=== PATIENT | male | born 1990 | race Caucasian/White ===

== ENCOUNTER 2016-08-30 18:33 | Emergency (ER) ==
[2016-08-30 18:45] VITALS: BP 112/63; TEMP 98.7; BMI 19.1
[2016-08-30] MEDS ORDERED: ROCEPHIN IM STA (18:56)
[2016-08-30] MEDS ORDERED: LIDOCAINE 1 % AMP 5 ML (SUTURES) IM STA (18:56)
--- NOTE | 2016-08-30 18:59 | ED.PDOC ---
General ED Provider: Dr. BELLA MAURER-ER Chief Complaint: Penile Problem Stated Complaint: im having discharge from my penis and it jean to pee Time Seen by Physician: 18:57 Mode of Arrival: Walk-In Information Source: Patient Exam Limitations: No limitations Nursing and Triage Documentation Reviewed and Agree: Yes Complaint Exam - STD Male Complaint/Exam Onset/Duration: 3 days Symptoms Are: Still present Timing: Constant Initial Severity: Mild Current Severity: Mild Location: Reports: Penis Aggravating: Reports: None Alleviating: Reports: None Associated Signs and Symptoms: Reports: Dysuria. Denies: Penile sores, Scrotal pain, Scrotal swelling, Testicular pain, Testicular swelling Differential Diagnoses: Urethritis, STD, UTI Review of Systems - Review Of Systems Constitutional: Reports: No symptoms Eyes: Reports: No symptoms Ears, Nose, Mouth, Throat: Reports: No symptoms Respiratory: Reports: No symptoms Cardiac: Reports: No symptoms GI: Reports: No symptoms : Reports: Burning, Dysuria, Discharge Musculoskeletal: Reports: No symptoms Skin: Reports: No symptoms Neurological: Reports: No symptoms Endocrine: Reports: No symptoms Hematologic/Lymphatic: Reports: No symptoms All Other Systems: Reviewed and Negative Past Medical History - Past Medical History Previously Healthy: Yes Endocrine: Reports: Unknown Cardiovascular: Reports: Unknown Respiratory: Reports: Unknown Hematological: Reports: Unknown Gastrointestinal: Reports: Unknown Genitourinary: Reports: Unknown Neuro/Psych: Reports: Unknown Musculoskeletal: Reports: Unknown Cancer: Reports: Unknown - Surgical History General Surgical History: Reports: Unknown - Family History Family History: Reports: Unknown - Social History Smoking Status: Current every day smoker, Light tobacco smoker Hx Substance Use: No Alcohol Screening: None Lives: With family Physical Exam - Physical Exam Appearance: Well-appearing, No pain distress, Well-nourished Eyes: MARIA DE JESUS, EOMI, Conjunctiva clear ENT: Ears normal, Nose normal, Oropharynx normal Neck: Supple Respiratory: Airway patent, Breath sounds clear, Breath sounds equal, Respirations nonlabored Cardiovascular: RRR, Pulses normal, No rub, No murmur GI/: Soft, Nontender, No masses, Bowel sounds normal, No Organomegaly Musculoskeletal: Normal strength Skin: Warm, Dry, Normal color Neurological: Sensation intact, Motor intact, Reflexes intact, Cranial nerves intact, Alert, Oriented Psychiatric: Affect appropriate, Mood appropriate Critical Care Note - Critical Care Note Total Time (mins): 0 Course - Course Orders, Labs, Meds: Orders Category Date Time Status CHLAMYDIA/GC AMPLIFICATION Stat LAB 08/30/16 18:55 Ordered URINALYSIS C & S IF INDICATED Stat LAB 08/30/16 18:55 Uncollected URINE CULTURE Stat LAB 08/30/16 18:55 Uncollected Ceftriaxone Sodium [Rocephin] MEDS 08/30/16 18:56 Discontinued 250 mg IM ONCE STA Lidocaine HCl/Pf [Lidocaine 1 % Amp 5 ml (Sutures)] MEDS 08/30/16 18:56 Discontinued 0.9 ml IM ONCE STA Medications Discontinued Medications Generic Name Dose Route Start Last Admin Trade Name Freq PRN Reason Stop Dose Admin Ceftriaxone Sodium 250 mg 08/30/16 18:56 Rocephin IM 08/30/16 18:57 ONCE STA Lidocaine HCl 0.9 ml 08/30/16 18:56 Lidocaine 1 % Amp 5 Ml (Sutures) IM 08/30/16 18:57 ONCE STA Vital Signs: Temp Pulse Resp BP Pulse Ox 08/30/16 18:34 98.7 F 84 16 112/63 98 Departure - Departure Time of Disposition: 18:59 Disposition: HOME SELF-CARE Discharge Problem: Urethritis Instructions: Nonspecific Urethritis in Men (ED) Condition: Good Pt referred to PMD for follow-up: Yes Additional Instructions: doxycycline 100mg bid x 10 day #20--f/u with pcp next week for culture results-- no sex until treatment complete Allergies/Adverse Reactions: Allergies No Known Allergies Allergy (Unverified 08/30/16 18:40) Home Medications: Ambulatory Orders 1 [No Reported Medications] 08/30/16 Disposition Discussed With: Patient
[2016-08-30 19:10] LABS: BILIRUBIN,URINE 1+ (NEGATIVE); KETONES,URINE Negative (NEGATIVE); LEUKOCYTE ESTERASE ,URINE 3+ (NEGATIVE); NITRITE,URINE Negative (NEGATIVE); PH,URINE 6.5 (5-9); PROTEIN,URINE 2+ (NEGATIVE); URINE, BLOOD 2+ (NEGATIVE)
[2016-08-30 19:12] LABS: ADD URINE MICROSCOPIC YES
[2016-08-30 19:28] LABS: BACTERIA,URINE 2+ (NOT PRESENT)
== END 2016-08-30 19:27 | disposition home or self-care (01) ==
LOC: ED 18:33
DX: N34.2 Other urethritis (principal); F17.210 Nicotine dependence, cigarettes, uncomplicated
CPT/HCPCS: 36415; 81001; 87086; 87800; 96372; 99283